=== PATIENT | female | born 1940 | race Two or more races ===

== ENCOUNTER 2023-02-17 08:01 | Day surgery (SDC) | payer OTHER ==
[~2023-02-17] VITALS: Ht 152.4 cm; Wt 48.1 kg
[~2023-02-17 08:01] MED LIST: ASPI-543 PO; ATOR40TA52 PO; HYDR-4795 PO; HYDR12.59 PO; MAGN400T40 OR; METO25TA93 PO; NIFE1TAB31 PO; POTA10TA51 PO
[2023-02-17] MEDS ORDERED: IODIXANOL 320MG/ML 100ML BTL IV ONE ×4 (08:26→09:54)
[2023-02-17] MEDS ORDERED: VERAPAMIL 2.5MG/ML INJ 2ML VIAL IV ONE (08:41)
[2023-02-17] MEDS ORDERED: HEPARIN SODIUM (PORCINE) 5000 UNITS/ML 1ML VIAL ONE (08:41)
[2023-02-17] MEDS ORDERED: ANGIOMAX 250 MG VIAL IV ONE (08:41)
[2023-02-17] MEDS ORDERED: fentaNYL CITRATE 100 MCG/2 ML VL ONE (08:41)
[2023-02-17] MEDS ORDERED: MIDAZOLAM HCL 2MG/2ML 2ml VIAL (1mg/ml) ONE (08:42)
[2023-02-17] MEDS ORDERED: SODIUM CHL 0.9% 50 ML ONE (08:42)
[2023-02-17] MEDS ORDERED: hydrALAZINE HCL 20 MG/ML VL ONE (10:19)
[2023-02-17] MEDS ORDERED: TICAGRELOR 90 MG TAB ONE (10:24)
[2023-02-17] MEDS ORDERED: ASPirin 325 MG TAB ONE (10:25)
[2023-02-17] MEDS ORDERED: HYDROcodone-ACET 5/325MG TAB PO PRN (11:15)
[2023-02-17] MEDS ORDERED: TICA90TA PO (11:58)
== END 2023-02-17 12:36 | disposition home or self-care (01) ==
LOC: CATH 08:01
PROVIDERS: ATTEND Internal Medicine Cardiovascular Disease
DX: I25.10 Atherosclerotic heart disease of native coronary artery without angina pectoris (principal); I10 Essential (primary) hypertension; E78.5 Hyperlipidemia, unspecified; G89.4 Chronic pain syndrome; R73.03 Prediabetes; J98.4 Other disorders of lung; Z79.899 Other long term (current) drug therapy; Z98.890 Other specified postprocedural states
CPT/HCPCS: 93458; 93571; C1725; C1769; C1874; C1887; C1894; C9600; J0360; J0583; J1644; J2250; J3010; J7030; Q9967; 99152; 99153; A4565

== ENCOUNTER 2023-06-21 07:01 | Emergency (ER) | payer OTHER ==
[~2023-06-21] VITALS: Ht 152.4 cm; Wt 50.9 kg
[~2023-06-21 07:01] MED LIST changes: +POTA-36 PO; -POTA10TA51 PO; +TICA90TA PO
[2023-06-21 07:52] VITALS: BP 140/43; PULSE 62; RESP 16; TEMP 98.6; O2SAT 96
[2023-06-21] MEDS ORDERED: TICA90TA PO (07:52)
== END 2023-06-21 07:54 | disposition home or self-care (01) ==
LOC: ER 07:01
DX: Z01.810 Encounter for preprocedural cardiovascular examination (principal); Z76.0 Encounter for issue of repeat prescription